=== PATIENT | male | born 1950 | race Caucasian/White ===

== ENCOUNTER 2016-12-09 00:48 | Emergency (ER) | payer MEDICARE, OTHER ==
[2016-12-09] MEDS ORDERED: SODIUM CHLORIDE 0.9% 1,000 ML ONE (01:11)
[2016-12-09] MEDS ORDERED: PANTOPRAZOLE SODIUM 40 MG VIAL IV ONE ×2 (01:11→01:23)
[2016-12-09 01:12] LABS: ABSOLUTE NEUTROPHIL COUNT 7.6 K/mm3 (1.8-7.7); BASO # 0.1 K/mm3 (0.0-0.2); BASO % 0.4 % (0.2-1.0); EOS # 0.2 (0.0-0.5); EOS % 1.4 % (0.9-2.9); HEMATOCRIT 40.8 % (32.0-52.0); HEMOGLOBIN 13.5 gm/l (14.0-18.0); IMM NEUT% 0.3 % (0-1); LYMPH # 3.1 (1.0-4.8); LYMPH % 25.9 % (15-45); MEAN CORPUSCULAR HEMOGLOBIN 32.8 pg (27.0-31.0); MEAN CORPUSCULAR HGB CONC 33.1 g/dl (33.0-37.0); MEAN PLATELET VOLUME 10.3 fl (7.4-10.4); MONO % 8.2 % (4-12); NEUT % 63.8 % (43-75); PLATELET COUNT 281 K/mm3 (130-400); RED CELL DISTRIBUTION WIDTH 12.7 % (11.5-14.5)
[2016-12-09] MEDS ORDERED: SODIUM CHLORIDE 0.9% 100 ML IV ONE (01:23)
[2016-12-09 01:26] LABS: INR 1.04; PARTIAL THROMBOPLASTIN TIME 22.6 SECONDS (24.5-33.0); PROTHROMBIN TIME 10.9 SECONDS (9.3-11.4)
[2016-12-09 01:32] LABS: ALB/GLOB RATIO 1.3 (>1.0); ALBUMIN 3.5 gm/dL (3.5-5.7); CALCIUM 8.6 mg/dL (8.6-10.3)
--- NOTE | 2016-12-09 08:22 | RAD ---
CHEST-AP BEDSIDE COMPARISON: None HISTORY: Fall. Chest pain. FINDINGS: Views: Frontal chest. Lungs: The lungs are clear. Heart and vessels: Normal Trachea and bronchi: Normal Mediastinum and cas: Normal Costophrenic sulci: Normal Chest wall and bones: Normal Upper abdomen: Normal. IMPRESSION: Negative one view chest.
--- NOTE | 2016-12-09 08:23 | RAD ---
SHOULDER-RIGHT 2 OR MORE VIEWS COMPARISON: None. HISTORY: Fall. Right shoulder pain. FINDINGS: Views: Right shoulder AP, internal rotation, and scapular Y Bones: Normal. Joints: Normal glenoid humeral joint. Moderate narrowing of the acromioclavicular joint. Soft tissues: Normal. IMPRESSION: 1. No fracture. 2. Moderate osteoarthritis of the acromioclavicular joint.
--- NOTE | 2016-12-09 08:24 | RAD ---
WRIST- RIGHT 3 VIEWS COMPARISON: None HISTORY: Fall. Right wrist pain. FINDINGS: Views: Right wrist PA, oblique, lateral. Bones: Normal Joints: Normal Soft tissues: Marked soft tissue swelling posterior to the wrist. IMPRESSION: Marked soft tissue swelling posterior to the right wrist. No fracture.
== END 2016-12-09 02:34 | disposition short-term general hospital (02) ==
LOC: ED 00:48
DX: S63.501A Unspecified sprain of right wrist, initial encounter (principal); K92.2 Gastrointestinal hemorrhage, unspecified; I95.1 Orthostatic hypotension; R74.0 Nonspecific elevation of levels of transaminase and lactic acid dehydrogenase [LDH]; T14.8 Other injury of unspecified body region; I10 Essential (primary) hypertension; F17.210 Nicotine dependence, cigarettes, uncomplicated; G20 Parkinson's disease; W19.XXXA Unspecified fall, initial encounter; Y92.002 Bathroom of unspecified non-institutional (private) residence as the place of occurrence of the external cause